=== PATIENT | male | born 1955 | race Caucasian/White ===

== ENCOUNTER 2021-06-09 04:28 | Emergency (ER) | payer OTHER ==
--- NOTE | 2021-06-09 04:35 | ED Physician Documentation ---
PD HPI BACK PAIN - Stated complaint Stated Complaint: LOW BACK PX - History obtained from History obtained from: Patient - History of Present Illness Timing - onset: Enter time (00:30), Today Timing - details: Abrupt onset, Waxing and waning Pain level now: 8 Location: Right Quality: Pain Associated symptoms: No: Fever, Weakness, Numbness, Incontinent of urine, Hematuria, Incontinent of stool Improves with: Nothing Worsened by: Other (no exacerbating factors) Similar symptoms before: Has not had sx before Recently seen: Not recently seen - Additional information Additional information: c/o sudden onset right flank pain waking him from sleep at approximately 12:30 AM. denies h/o similar symptoms. pain has been waxing and waning without apparent exacerbating or ameliorating factors Review of Systems Constitutional: denies: Fever, Chills, Sweats Cardiac: reports: Reviewed and negative Respiratory: reports: Reviewed and negative GI: denies: Abdominal Pain, Nausea, Vomiting : denies: Dysuria, Frequency, Hematuria Musculoskeletal: reports: Back pain PD PAST MEDICAL HISTORY - Past Medical History Past Medical History: No - Past Surgical History Past Surgical History: No - Present Medications Home Medications: Ambulatory Orders Medication Instructions Recorded Confirmed Oxycodone HCl/Acetaminophen 1 - 2 each PO Q6H PRN #14 tablet 06/09/21 [Percocet 5-325 mg Tablet] Tamsulosin [Flomax] 0.4 mg PO DAILY #7 cap 06/09/21 - Allergies Allergies/Adverse Reactions: Allergies Allergy/AdvReac Type Severity Reaction Status Date / Time No Known Drug Allergies Allergy Verified 06/09/21 04:37 - Living Situation Living Arrangement: reports: At home PD ED PE NORMAL - Vitals Vital signs reviewed: Yes - General General: Alert and oriented X 3, Well developed/nourished, Other (obvious painful distress) - Cardiac Cardiac: RRR, No murmur - Respiratory Respiratory: No respiratory distress, Clear bilaterally - Abdomen Abdomen: Soft, Non tender, Non distended - Back Back: No CVA TTP Results - Vitals Vitals: Vital Signs - 24 hr 06/09/21 06/09/21 04:35 06:07 Temperature 36.5 C 36.4 C L Heart Rate 68 71 Respiratory 19 17 Rate Blood Pressure 155/91 H 128/61 O2 Saturation 98 96 Oxygen O2 Source Room air - Labs Labs: Laboratory Tests 06/09/21 04:39 Urine Color YELLOW Urine Clarity CLEAR Urine pH 5.0 Ur Specific [place] >=1.030 H Urine Protein NEGATIVE Urine Glucose (UA) NEGATIVE Urine Ketones TRACE Urine Occult Blood LARGE H Urine Nitrite NEGATIVE Urine Bilirubin NEGATIVE Urine Urobilinogen 0.2 (NORMAL) Ur Leukocyte Esterase NEGATIVE Urine RBC 6-10 H Urine WBC 0-3 Ur Squamous Epith Cells RARE Squamous Urine Bacteria Rare Ur Microscopic Review INDICATED Urine Culture Comments NOT INDICATED - Rads (name of study) CT A/P Radiology: Prelim report reviewed, See rad report PD MEDICAL DECISION MAKING - ED course Complexity details: reviewed results, re-evaluated patient, d/w patient, d/w family ED course: presents with sudden onset right flank pain, no trauma nor h/o similar symptoms. HPI s/o renal colic, hematuria on UA result, and CT demonstrates 3mm right ureteral calculus. He reports good pain relief with IV toradol 30mg and IV dilaudid 1mg . He is subsequently given tamsulosin and prescriptions for percocet and flomax submitted to his pharmacy. We discussed the test results, prognosis, return precautions. I am prescribing a short course of short-acting opioid pain medication for this patient. I have reviewed the patients [employer] and no concerning findings were noted. I have discussed that the opioids are for short term therapy only, and will not be refilled from the ED. Departure - Departure Disposition: 01 Home, Self Care Clinical Impression: Renal colic on right side Condition: Good Instructions: ED Stone Renal W Colic Prescriptions: Tamsulosin [Flomax] 0.4 mg PO DAILY #7 cap Oxycodone HCl/Acetaminophen [Percocet 5-325 mg Tablet] 1 - 2 each PO Q6H PRN #14 tablet PRN Reason: pain Comments: Prescriptions for pain medication (oxycodone with acetaminophen) and flomax have been electronically submitted to [email or web address] in [place]. The flomax (tamsulosin) increases the likelihood that the kidney stone will pass and decreases the time until passage. You can use the strainer provided to strain your urine; this is so that you can know for certain when the stone has passed. I am prescribing a short course of narcotic pain medication for you. These are potentially dangerous and addictive medications that should be used carefully. These medications may constipate you. Take an [id number]-mql-[id number] stool softener (docusate) twice daily with plenty of water while taking these medications. If you go 24 hours without a bowel movement, take [id number] miralax, per package instructions. Do not drink or drive while taking these medications. If you received narcotic or sedating medications while in the emergency department, do not drive for 24 hours. Store this medication in a safe, secure place and out of reach of children. It is a violation of federal law to give or sell this medication to another person or to use in a manner other than prescribed. The ED will not refill narcotic prescriptions, including prescriptions lost or stolen. To dispose of unwanted medications: 1. [facility] [address] in [place] has a medication drop box. They accept prescription medications (in pill form) Tuesday through Tuesday 9:00 a.m. to 5:00 p.m. 2. The [facility] [employer] accepts prescription medications (in pill form only) for disposal year round. Call for more information. 3. Contact the [facility] for the next [facility] sponsored prescription drug collection event. , [phone], or [phone]; Discharge Date/Time: 06/09/21 06:11
[2021-06-09] MEDS ORDERED: KETOROLAC 30 MG/ML VIAL IVP STA (04:41)
[2021-06-09] MEDS ORDERED: HYDROmorphone 1 MG/ML CARPUJECT IVP STA (04:41)
[2021-06-09] MEDS ORDERED: ONDANSETRON 4 MG/2 ML VIAL IVP STA (04:41)
[2021-06-09 04:44] LABS: BILIRUBIN,URINE NEGATIVE (NEGATIVE); GLUCOSE, URINE (UA) NEGATIVE (NEGATIVE); KETONES,URINE (UA) TRACE mg/dL (NEGATIVE); LEUKOCYTE ESTERASE, URINE NEGATIVE (NEGATIVE); NITRITE,URINE NEGATIVE (NEGATIVE); OCCULT BLOOD,URINE LARGE (NEGATIVE); PROTEIN,URINE NEGATIVE (NEGATIVE); UROBILINOGEN,URINE 0.2 (NORMAL) E.U./dL (NORMAL)
[2021-06-09 04:47] LABS: CLARITY,URINE CLEAR (CLEAR)
[2021-06-09 04:54] LABS: BACTERIA,URINE Rare /HPF (None Seen); SQUAMOUS EPITHELIAL CELL,UR RARE Squamous (<= Few); WBC,URINE 0-3 /HPF (0-3)
[2021-06-09] MEDS ORDERED: oxyCODONE/ACET 5/325 Prepack 4 PO STA (05:44)
[2021-06-09] MEDS ORDERED: TAMSULOSIN 0.4 MG CAPSULE PO STA (05:45)
[2021-06-09 06:08] VITALS: BP 128/61
--- NOTE | 2021-06-09 08:36 | CT Report ---
PROCEDURE: Abdomen/Pelvis WO INDICATIONS: right flank pain TECHNIQUE: Noncontrast 5 mm thick sections acquired from the diaphragms to the symphysis. 5 mm coronal and sagi ttal reformats were then performed. For radiation dose reduction, the following was used: automated exposure control, adjustment of mA and/or kV according to patient size. COMPARISON: None. FINDINGS: Image quality: Excellent. ABDOMEN: Lung bases: Lung bases are clear. Heart size is normal. Solid organs: Liver and spleen are normal in size. A 7 mm hypoattenuating lesion in the inferior rig ht hepatic lobe is too small to characterize, but may represent a cyst. Gallbladder is unremarkable. Pancreas is normal in contours. No adrenal nodules there is a 3 mm calculus in the distal right ure ter near the ureterovesicular junction with mild periureteral fat stranding and mild hydroureter. Add itional 3 to 4 mm calcifications in the mid to upper pole the right kidney most likely represent nicolas tional nonobstructing calculi. Hypoattenuating lesions in both kidneys are most likely cysts. No left -sided renal or ureteral calculus. Peritoneum and bowel: There is a small hiatal hernia. Multiple colonic diverticula are seen without signs of acute diverticulitis. Normal appendix. No signs of bowel obstruction. Nodes and vessels: No retroperitoneal or mesenteric adenopathy by size criteria. Aorta and inferior vena cava are normal in caliber. Miscellaneous: No ventral hernias. PELVIS: Genitourinary: Bladder wall thickness is normal. Miscellaneous: Small bilateral fat-containing inguinal hernias. No significant pelvic lymphadenopathy . Bones: No suspicious bony lesions. No vertebral body compression fractures. Degenerative changes a re seen in the spine. IMPRESSION: Right distal ureteral 3 mm calculus near the ureterovesicular junction with mild hydroureter and wallace ureteral fat stranding. There is no significant discrepancy when compared with the overnight teleradiology report. Reviewed by: Ashish Shi MD on 06/09/2021 8:34 AM [facility] Approved by: Ashish Shi MD on 06/09/2021 8:34 AM PST Station ID: [id number]
== END 2021-06-09 06:11 | disposition home or self-care (01) ==
LOC: ED 04:28
DX: N23 Unspecified renal colic (principal)
CPT/HCPCS: 74176; 81001; 96374; 96375; 99284; A9270; J1170; 81003; 87086